=== PATIENT | male | born 1960 | race Caucasian/White ===

== ENCOUNTER → 2016-12-12 | Day surgery (SDC) | payer BC ==
[2016-07-14 10:40] VITALS: BMI 29.0
[~2016-12-12] MED LIST: BUPIVACAINE 0.5% 30 ML VIAL ONE; CEFAZOLIN 1 GM VIAL ONE; FENTANYL 100 MCG/2 ML VIAL IV ONE; FENTANYL 100 MCG/2 ML VIAL IV PRN; HYDROmorphone 1 MG INJECTION IV PRN; LABETALOL 20 MG/4 ML SYRINGE IV PRN; LIDOCAINE 1% 30 ML VIAL (PRESERVATIVE FREE) ONE; MEPERIDINE 25 MG/ML TUBEX IV PRN; MIDAZOLAM 2 MG/2 ML VIAL IV ONE; ONDANSETRON HCL 4 MG ODT TAB PO PRN; ONDANSETRON HCL 4 MG/2 ML VIAL IV PRN; PROMETHAZINE 25 MG/ML VIAL IV PRN; PROPOFOL 200 MG/20 ML VIAL IV ONE; hydrALAZINE 20 MG/ML VIAL IV PRN
--- NOTE | 2016-12-12 06:49 | SC.ANESPOS ---
Post-Anesthesia Note LOC: [facility] Post-Anesthesia Assessment: Awake, Returned to Baseline, Hemodynamically Stable , Pain Control Adequate Phase I & II Recovery Complete: Yes Apparent Anesthesia Complication: No : N - Vital Signs Blood Pressure: 138/99 Pulse: 65 Resp Rate: 18 O2 Sat: 97 Temp: 98.2 F
--- NOTE | 2016-12-12 06:50 | HIM.ANES ---
Anesthesia Evaluation & Plan Diagnoses: ENCOUNTER FOR ADJUSTMENT AND MANAGEMENT OF VAD (12/12/16) Consented Procedure: PORT REMOVAL - Focused Review of Systems Cardiac History: Yes: Hx Hypertension, Hx Cardiac Disorders HEENT: Yes: Other HEENT Problems Hx Other HEENT Surgery: TONSILLECTOMY Respiratory: Yes: Hx Snoring Gastrointestinal: Yes: Hx Gastroesophageal Reflux Disease (Controlled), Hx Gastrointestinal Disorders, Hx Colonoscopy (06/2016 POLYPECTOMY) Neurological/Musculoskeletal: No: Hx Neurological Disorders Psychological: No Hx Mental/Emotional Disorders Blood/Autoimmune: No: Hx AIDS, Hx Hepatitis (type) Smoking Status: Never smoker Surgical History: Yes: T&A Other Surgical History: TONSILLECTOMY CYSTOSCOPY 07/2013 - Focused Physical Exam NPO since: 12/11/16 1900 Mallampati: Class II Thyromental Distance: Less than 3 Neck: Full Range of Motion Dental: Other (Caps) Cardiovascular/Chest: Normal Respiratory: Lungs clear Any problems with anesthesia, including nausea and vomiting?: No Any relatives with a history of Malignant Hyperthermia?: No Beta Peewee given (if appropriate): N/A Does the patient have a history of Motion Sickness-: No Other: Allergies Allergy/AdvReac Type Severity Reaction Status Date / Time No Known Allergies Allergy Verified 12/12/16 06:12 Home Medications Medication Instructions Recorded Last Taken Type Lisinopril [Prinivil] 10 mg PO QAM 07/01/16 12/12/16 05:15 History Aspirin [Aspirin EC] 81 mg PO DAILY 07/04/16 1 Week Ago History Omeprazole [Prilosec] 20 mg PO DAILY 12/12/16 12/12/16 05:15 History Height and Weight Patient's height 6 ft Patient's weight 190 lb BMI 29.0 Vital Signs Temperature 98.2 F 12/12/16 06:49 Pulse Rate 65 12/12/16 06:49 Respiratory Rate 18 12/12/16 06:49 Blood Pressure 138/99 12/12/16 06:49 Pulse Oxygen Saturation 97 12/12/16 06:49 - Anesthetic Plan Anesthesia Type: MAC ASA Class: 2 -: I have examined this patient and reviewed the medical record. The patient has been assessed prior to anesthesia. Risks and benefits of anesthesia and anesthetic technique options have been discussed and all questions answered. The patient accepts the risk and desires me to proceed with the planned anesthetic.
--- NOTE | 2016-12-12 08:06 | HIMOPRPT ---
DATE OF PROCEDURE: 12/12/16 PREOPERATIVE DIAGNOSIS: Encounter for adjustment and management of vascular device POSTOPERATIVE DIAGNOSIS: Same PROCEDURE: Port removal. SURGEON: Varun aMthew MD ANESTHESIA: Local MAC. COMPLICATIONS: None. SPECIMENS: Port was removed and discarded. CHEST X-RAY: Pending. PACKINGS AND DRAINS: None BLOOD LOSS: 1 cc OPERATIVE FINDING AND TECHNIQUE: With consent, the patient was brought to the operative suite, placed in supine position. Following IV sedation, the right chest was prepped and draped in usual fashion. Combination of 1% Xylocaine and 0.5% Marcaine was injected locally. Skin incision was made. Port was identified. Anchoring sutures were removed. The port was removed with the catheter tip completely intact. Port was passed off and discarded. Pressure was held assuring hemostasis. Wound was irrigated and dried. Deep tissue was reapproximated using Vicryl suture. Skin approximation was accomplished using 4-0 Monocryl in subcuticular fashion. Dermabond, 2 x 2 gauze, and Tegaderm dressing were applied to the wound. The patient tolerated the procedure well with the findings as described. There were no pathologic specimens.
[2016-12-12 15:12] VITALS: BP 138/99; PULSE 65; TEMP 98.2
== END ==
LOC: SDC 05:44
PROVIDERS: ATTEND Surgery Vascular Surgery
PROC: 0JPT0XZ Removal of Tunneled Vascular Access Device from Trunk Subcutaneous Tissue and Fascia, Open Approach (ICD-10-PCS; principal; 2016-12-12 07:15)
DX: Z45.2 Encounter for adjustment and management of vascular access device (principal); I10 Essential (primary) hypertension; K21.9 Gastro-esophageal reflux disease without esophagitis; C02.9 Malignant neoplasm of tongue, unspecified; C79.89 Secondary malignant neoplasm of other specified sites; Z79.899 Other long term (current) drug therapy
CPT/HCPCS: 36590; J0690; J2001; J2250; J3010; J3490